=== PATIENT | female | born 1970 | race Caucasian/White ===

== ENCOUNTER → 2024-04-19 12:40 | Outpatient (REF) | payer OTHER, SELFPAY | LOC: MRI 3T 12:40 | PROVIDERS: ATTENDING PHYSICIAN Nurse Practitioner Family; REFERRING PHYSICIAN Obstetrics & Gynecology Gynecology | DX: Z85.3 Personal history of malignant neoplasm of breast (principal) | CPT/HCPCS: 77049; A9585 ==

== ENCOUNTER → 2024-10-06 09:38 | Outpatient (REF) | payer OTHER, SELFPAY | LOC: HWWDC 09:38 | PROVIDERS: ATTENDING PHYSICIAN Obstetrics & Gynecology Gynecology; FAMILY PHYSICIAN Nurse Practitioner Primary Care | DX: Z12.31 Encounter for screening mammogram for malignant neoplasm of breast (principal) | CPT/HCPCS: 77063; 77067 ==

== ENCOUNTER → 2025-03-03 13:17 | Outpatient (REF) | payer OTHER, SELFPAY | LOC: RAD 13:17 | PROVIDERS: ATTENDING PHYSICIAN Family Medicine; FAMILY PHYSICIAN Nurse Practitioner Primary Care | DX: R10.2 Pelvic and perineal pain (principal) | CPT/HCPCS: 76830; 76856 ==

== ENCOUNTER → 2025-08-16 19:33 | Outpatient (REF) | payer OTHER, SELFPAY | LOC: MRI 3T 19:33 | PROVIDERS: ATTENDING PHYSICIAN Nurse Practitioner Adult Health; FAMILY PHYSICIAN Internal Medicine | DX: R10.2 Pelvic and perineal pain (principal); N95.0 Postmenopausal bleeding; Z85.3 Personal history of malignant neoplasm of breast; K59.09 Other constipation; Z92.29 Personal history of other drug therapy | CPT/HCPCS: 72197; A9575 ==

== ENCOUNTER → 2025-08-31 18:15 | Outpatient (REF) | payer OTHER, SELFPAY | LOC: MRI 3T 18:15 | PROVIDERS: ATTENDING PHYSICIAN Internal Medicine | DX: Z85.3 Personal history of malignant neoplasm of breast (principal) | CPT/HCPCS: 77049; A9585 ==